=== PATIENT | female | born 1970 | race African-American/Black ===

== ENCOUNTER 2020-05-08 14:21 | Emergency (ER) | payer OTHER, SELFPAY ==
--- NOTE | ~2020-05-08 | XR_ITS ---
XR finger 1st RT min 2V DATE: 05/08/2020 15:02 INDICATION: Feels like finger is popping out of place TECHNIQUE: 3 views COMPARISON: None FINDINGS: There is mild osteoarthritic change at the first carpometacarpal and first digit interphala ngeal joints. No fracture, dislocation, periosteal reaction or bone destruction, radiopaque soft tissue foreign bod y or emphysema. IMPRESSION: Osteoarthritis Reviewed, dictated and finalized at location A. IMPRESSION: Osteoarthritis
[2020-05-08 14:35] VITALS: BP 152/91; PULSE 96; RESP 16; TEMP 37.2; O2SAT 100
--- NOTE | 2020-05-08 14:37 | ED.UPPEXIN ---
HPI - Extremity Injury (Upper) General Chief Complaint: Extremity Problem,Nontraumatic Stated Complaint: RIGHT PAINFUL SWELLING THUMB Time Seen by Provider: 05/08/20 14:41 Source: patient and RN notes reviewed Mode of arrival: ambulatory Limitations: no limitations History of Present Illness HPI narrative: 50-year-old female presents with concern for pain, swelling to the base of the right thumb, the DIP joint popping out of place . Reports symptoms have been worsening over the past week. Denies any injury, trauma to the hand. Denies any numbness or tingling. Reports she feels a lump at the base of the thumb, has warmth to the digit. Denies any history of arthritis, chronic pain MD complaint: injury to: right and finger Other Extremity Injury: Right: fingers Related Data Home Medications Medication Instructions Recorded Confirmed hydrochlorothiazide 25 mg DAILY 05/08/20 05/08/20 lisinopril 30 mg DAILY 05/08/20 05/08/20 oxybutynin chloride 10 mg PO DAILY 05/08/20 05/08/20 Allergies Allergy/AdvReac Type Severity Reaction Status Date / Time No Known Allergies Allergy Verified 05/08/20 14:37 Review of Systems Review of Systems: Narrative: CONSTITUTIONAL: Denies malaise, chills, sweats, or fever. CARDIOVASCULAR: Denies chest pain, palpitations RESPIRATORY: Denies cough or dyspnea. SKIN: Denies bruising, redness. Reports warmth to the base of the right thumb MUSCULOSKELETAL: Reports right thumb pain, swelling at the base of the digit, digit popping NEUROLOGIC: Denies numbness, weakness All systems reviewed & are unremarkable except as noted in HPI and below PMFSH Social History Social History Gender identity (if verbalized by the patient): Female Comments At time of signature, agree with nursing past medical, surgical, social and family history. There is no relevant family history pertinent to the presenting complaint Exam Narrative: Exam Narrative: GENERAL: Well-appearing, well-nourished, and in no acute distress. HEAD: Normocephalic EYES: PERRLA, conjunctivae clear NECK: Supple. CHEST: Speaks in full sentences. No respiratory distress. HEART: Regular rate and rhythm. Normal and equal peripheral pulses. EXTREMITIES: Right first digits has normal strength and sensation. 5/5 strength with digit flexion, extension. No erythema or warmth noted. Range of motion normal. No clubbing, cyanosis, or edema noted. No tenderness. Skin intact. Normal digital cascade with flexion of fingers, median, ulnar and radial nerve intact. Normal sensation of each side of finger. Can perform 'okay' sign, 'cross over finger test of index and middle fingers' and 'thumbs up' sign. No scissoring. Normal thumb opposition. Good capillary refill and radial pulse. Distal capillary refill less than 3 seconds. SKIN: Warn, dry, intact, pink. No rash NEURO: Alert and oriented x3. PSYCH: Normal mood and affect Course Course Emergency Course: Patient is aware of diagnosis, understands and agrees to treatment plan. Anticipatory guidance given. Patient agrees to follow-up as directed and is aware of reasons to seek care at the emergency department. Portions of this record may have been created with voice recognition software Vital Signs Vital signs: Vital Signs Temperature 99 F 05/08/20 14:35 Pulse Rate 96 05/08/20 14:35 Respiratory Rate 16 05/08/20 14:35 Blood Pressure 152/91 H 05/08/20 14:35 Pulse Oximetry 100 05/08/20 14:35 Temperature 99 F 05/08/20 14:35 Pulse Rate 96 05/08/20 14:35 Respiratory Rate 16 05/08/20 14:35 Blood Pressure 152/91 H 05/08/20 14:35 Pulse Oximetry 100 05/08/20 14:35 Reviewed. MDM - Extremity Injury (Upper) MDM Narrative Medical decision making narrative: Patients pain is consistent with musculoskeletal etiology. No signs of neurological or vascular compromise on exam. Compartments and tissues are soft without signs of compartment syndrome. Pain is felt appropriate for furthe
== END 2020-05-08 15:38 | disposition home or self-care (01) ==
PROVIDERS: Emergency Provider Nurse Practitioner
DX: M18.11 Unilateral primary osteoarthritis of first carpometacarpal joint, right hand (principal); I10 Essential (primary) hypertension
CPT/HCPCS: 73140; 99213; G0463

== ENCOUNTER 2022-11-13 15:03 | Outpatient (CLI) | payer OTHER, SELFPAY ==
--- NOTE | ~2022-11-13 | XR_ITS ---
EXAMINATION: XR foot RT standing 2V, XR foot LT standing 2V DATE: 11/13/2022 16:14 INDICATION: Polyosteoarthritis TECHNIQUE: 1. Dorsoplantar and lateral views of the left foot were obtained. 2. Dorsoplantar and lateral views of the right foot were obtained. COMPARISON: None. FINDINGS: Alignment is normal at both feet. No fractures. Mild osteoarthritis at the left ankle with mild poste rior predominant nonuniform joint space narrowing and anterior marginal osteophytes along the talar d ome and tibial plafond. Additional mild osteoarthritis at a few of the bilateral profile tarsometatar lora and interphalangeal joints. Bilateral small Achilles and plantar calcaneal spurs. Soft tissues ar e unremarkable. No ankle joint effusions. IMPRESSION: 1. Mild osteoarthritis at the left ankle. 2. Small enthesophytes at the bilateral calcaneal insertions of the Achilles tendons and plantar apon euroses. Reviewed, dictated and finalized at location L. IMPRESSION: 1. Mild osteoarthritis at the left ankle. 2. Small enthesophytes at the bilateral calcaneal insertions of the Achilles te ndons and plantar aponeuroses.
--- NOTE | ~2022-11-13 | XR_ITS ---
EXAMINATION: XR sacroiliac joints min 3V DATE: 11/13/2022 16:14 INDICATION: Polyarticular osteoarthritis. TECHNIQUE: 3 views of the sacroiliac joints were obtained. COMPARISON: None. FINDINGS: Bone alignment is normal. No fracture. There is mild osteoarthritis of the sacroiliac joint s. IMPRESSION: 1. Mild osteoarthritis of the sacroiliac joints. No evidence of inflammatory arthropathy. Reviewed, dictated and finalized at location A. IMPRESSION: 1. Mild osteoarthritis of the sacroiliac joints. No evidence of inflammatory ar thropathy.
--- NOTE | ~2022-11-13 | XR_ITS ---
EXAMINATION: HAND-HILARIO ARTHRITIS 3+VIEWS DATE: 11/13/2022 16:14 INDICATION: Poly osteoarthritis TECHNIQUE: Posteroanterior, lateral, and oblique views of the left and of the right hands as well as a ballcatchers view of both hands were obtained. COMPARISON: None. FINDINGS: Normal alignment at the bilateral hands and wrists. Tiny corticated ossicle near the tip of the left ulnar styloid process without evident donor site which could represents a chronic nonunited avulsion fracture fragment, heterotopic ossicle related to old soft tissue injury or degenerative loose body. Acute fractures. Mild polyarticular osteoarthritis at the bilateral first carpometacarpal and multipl e interphalangeal joints with distal predominance. Small bone island at the base of the left first me tacarpal. No erosions to suggest inflammatory arthritis. Soft tissues are unremarkable. IMPRESSION: 1. Mild polyarticular osteoarthritis at the bilateral hands with typical distribution at the first ca rpometacarpal and multiple interphalangeal joints. Reviewed, dictated and finalized at location L. IMPRESSION: 1. Mild polyarticular osteoarthritis at the bilateral hands with typical distri bution at the first carpometacarpal and multiple interphalangeal joints.
--- NOTE | ~2022-11-13 | XR_ITS ---
EXAMINATION: XR knee LT 3V, XR knee RT 3V DATE: 11/13/2022 16:14 INDICATION: Polyarticular osteoarthritis TECHNIQUE: 1. Standing anteroposterior, lateral and sunrise views of the left knee were obtained. 2. Standing anteroposterior, lateral and sunrise views of the right knee were obtained. COMPARISON: Left knee radiographs dated 07/14/2016 FINDINGS: Normal alignment at both knees. No fractures. Small marginal osteophytes without significant joint sp raine narrowing consistent with mild osteoarthritis at the medial and patellofemoral compartments of maryanne th knees. Enthesophytes at the patellar insertions of the bilateral quadriceps tendons. Soft tissues are unremarkable. No knee joint effusions. IMPRESSION: 1. Mild osteoarthritis at the bilateral medial and patellofemoral compartments. Reviewed, dictated and finalized at location L. IMPRESSION: 1. Mild osteoarthritis at the bilateral medial and patellofemoral compartments.
--- NOTE | ~2022-11-13 | XR_ITS ---
EXAMINATION: XR lumbar spine 2-3V DATE: 11/13/2022 16:14 INDICATION: Polyarticular osteoarthritis, unspecified. TECHNIQUE: 3 views of lumbar spine were obtained. COMPARISON: None. FINDINGS: There is 3 mm anterolisthesis of L4 on L5. L3 is a limbus vertebra. There is mild chronic a nterior wedging of T12 and T11 vertebral bodies. There is mildly decreased disc height at L4-L5 and s everely decreased disc height at L5-S1. There is severe facet joint osteoarthritis in lower lumbar sp ine. IMPRESSION: 1. Severe lower lumbar spondylosis. Reviewed, dictated and finalized at location A.
[2022-11-13 17:23] LABS: Complement C3 145 mg/dL (88-165); Rheumatoid Factor < 8.6 IU/ML (<12)
[2022-11-13 17:25] LABS: Uric Acid 5.9 mg/dL (2.5-7.5)
[2022-11-13 17:56] LABS: Vitamin D 25 Hydroxy 33.8 ng/mL
[2022-11-16 02:36] LABS: Angiotensin Converting Enzyme 49 U/L (9-67)
[2022-11-17 04:00] LABS: Thyroid Peroxidase Antibodies 1016 IU/mL (<9)
[2022-11-18 20:05] LABS: SM Antibody <1.0; SM/RNP Antibody <1.0; SS-A <1.0; SS-B <1.0
[2022-11-19 12:20] LABS: Anti Cyclic Citrullinated Pept 22 Units (<20)
[2022-11-19 14:31] LABS: ANA Pattern Nuclear, Speckled; Anti Nuclear Antibody Pattern Nuclear, Nucleolar; Anti Nuclear Antibody Titer >=1:1280 (Negative)
[2022-11-19 22:24] LABS: ANCA Screen Negative (Negative); Myeloperoxidase Ab <1.0 AI (<1.0); Proteinase-3 Ab <1.0 AI (<1.0); S cerevisiae Ab (IgG) 14.8 U (<=20.0)
== END 2022-11-13 15:04 | disposition home or self-care (01) ==
PROVIDERS: PCP Nurse Practitioner Family; Visit Provider Internal Medicine
DX: M15.9 Polyosteoarthritis, unspecified (principal); Z71.89 Other specified counseling; Z79.899 Other long term (current) drug therapy; M47.898 Other spondylosis, sacral and sacrococcygeal region; M47.816 Spondylosis without myelopathy or radiculopathy, lumbar region; M77.31 Calcaneal spur, right foot
CPT/HCPCS: 36415; 72100; 72202; 73130; 73562; 73620; 82164; 82306; 84550; 86036; 86038; 86039; 86160; 86200; 86225; 86235; 86376; 86430; 86671

== ENCOUNTER 2022-12-09 11:27 | Outpatient (CLI) | payer OTHER, SELFPAY | END 2022-12-09 11:28 | disposition home or self-care (01) | LOC: ANHWCLAB 11:30 | PROVIDERS: PCP Nurse Practitioner Family; Visit Provider Internal Medicine | DX: R94.6 Abnormal results of thyroid function studies (principal); E66.9 Obesity, unspecified | CPT/HCPCS: 36415; 84439; 84443 ==

== ENCOUNTER 2022-12-15 08:57 | Outpatient (CLI) | payer OTHER, SELFPAY ==
[2022-12-20 20:27] LABS: Cortisol, Saliva 0.07 mcg/dL
[2022-12-20 20:27] LABS: Cortisol, Saliva <0.03 mcg/dL
== END 2022-12-15 08:58 | disposition home or self-care (01) ==
PROVIDERS: PCP Nurse Practitioner Family; Visit Provider Internal Medicine
DX: R94.6 Abnormal results of thyroid function studies (principal); R63.5 Abnormal weight gain
CPT/HCPCS: 82530